=== PATIENT | female | born 1985 | race Caucasian/White ===

== ENCOUNTER → 2016-09-29 | Outpatient (CLI) | payer OTHER ==
--- NOTE | 2016-09-29 14:31 | US ---
Left Breast Ultrasound History: Evaluate palpable asymmetry in the peripheral upper aspect of the left breast in a 31-year-o ld lactating female. Technique: Longitudinal and transverse images were obtained utilizing a 15 MHz transducer. Color Dop pler evaluation is employed for assessment of vascularity. Findings: The palpable asymmetry is identified on physical examination in the upper peripheral aspect of the left breast. Sonographic interrogation of this region demonstrates normal glandular elements. No solid or cystic abnormality is seen. Sonographic interrogation of the left axilla demonstrates a well-circumscribed hypoechoic area measuring 12 x 4 mm. This shows posterior acoustic enhancement and no internal flow. This is probably a benign cystic region. A 6-month follow up study is recommended. Impression: 1. The palpable area is benign breast tissue, BI-RADS 2. 2. Probably benign incidental cystic area found in the high left axillary region, BI-RADS 3. Recommendation: Continued clinical follow up of the breast with 6 month sonographic follow up of the cystic area in the left axilla. A verbal report was given to the patient. [facility] will send a result letter to the mariana box.
== END ==
LOC: FIMAGING 13:05
PROVIDERS: ATTEND Obstetrics & Gynecology
DX: N63 Unspecified lump in breast (principal)

== ENCOUNTER → 2017-05-04 | Outpatient (CLI) | payer OTHER | LOC: FIMAGING 08:49 | PROVIDERS: ATTEND Obstetrics & Gynecology | DX: Z12.39 Encounter for other screening for malignant neoplasm of breast (principal); N63 Unspecified lump in breast ==